=== PATIENT | male | born 1975 | race Caucasian/White ===

== ENCOUNTER 2016-12-11 02:21 | Emergency (ER) | payer OTHER ==
[~2016-12-11] VITALS: Ht 180.3 cm; Wt 113.8 kg
[2016-12-11 03:26] VITALS: BP 145/86
== END 2016-12-11 03:26 | disposition home or self-care (01) ==
LOC: ED 02:21
DX: S92.415A Nondisplaced fracture of proximal phalanx of left great toe, initial encounter for closed fracture (principal); I10 Essential (primary) hypertension; Z86.14 Personal history of Methicillin resistant Staphylococcus aureus infection; W22.8XXA Striking against or struck by other objects, initial encounter; Y93.89 Activity, other specified; Y99.8 Other external cause status; Y92.89 Other specified places as the place of occurrence of the external cause
CPT/HCPCS: J1885; Q0092

== ENCOUNTER 2017-06-05 05:09 | Emergency (ER) | payer OTHER ==
[2017-06-05 05:42] VITALS: BP 139/89
== END 2017-06-05 05:42 | disposition home or self-care (01) ==
LOC: ED 05:09
DX: B86 Scabies (principal); K21.9 Gastro-esophageal reflux disease without esophagitis

== ENCOUNTER 2017-07-17 19:33 | Emergency (ER) | payer OTHER ==
[~2017-07-17] VITALS: Ht 180.3 cm; Wt 113.4 kg
[2017-07-17 19:35] VITALS: Ht 180.3 cm; Wt 113.4 kg
[2017-07-17 22:22] VITALS: BP 144/75
== END 2017-07-17 22:22 | disposition home or self-care (01) ==
LOC: ED 19:33
DX: S92.414A Nondisplaced fracture of proximal phalanx of right great toe, initial encounter for closed fracture (principal); S01.01XA Laceration without foreign body of scalp, initial encounter; I10 Essential (primary) hypertension; Y08.89XA Assault by other specified means, initial encounter; Y93.89 Activity, other specified; Y92.89 Other specified places as the place of occurrence of the external cause; Y99.8 Other external cause status
CPT/HCPCS: J2001; Q0092

== ENCOUNTER 2017-07-19 01:14 | Emergency (ER) | payer OTHER ==
[~2017-07-19] VITALS: Ht 188 cm; Wt 121.6 kg
[2017-07-19 01:19] VITALS: Ht 188 cm; Wt 121.6 kg
[2017-07-19 04:08] VITALS: BP 144/86
== END 2017-07-19 02:03 | disposition home or self-care (01) ==
LOC: ED 01:14
DX: S01.01XD Laceration without foreign body of scalp, subsequent encounter (principal); X58.XXXD Exposure to other specified factors, subsequent encounter

== ENCOUNTER 2017-07-27 23:52 | Emergency (ER) | payer OTHER ==
[~2017-07-27] VITALS: Ht 182.9 cm; Wt 111.1 kg
[2017-07-28] VITALS: BP 158/94; Ht 182.9 cm; Wt 111.1 kg
== END 2017-07-28 02:03 | disposition left against medical advice (07) ==
LOC: ED 23:52
DX: Z53.21 Procedure and treatment not carried out due to patient leaving prior to being seen by health care provider (principal)

== ENCOUNTER 2017-07-29 02:28 | Emergency (ER) | payer OTHER ==
[~2017-07-29] VITALS: Ht 180.3 cm; Wt 110.8 kg
[2017-07-29 02:35] VITALS: Ht 180.3 cm; Wt 110.8 kg
[2017-07-29 03:02] VITALS: BP 161/90
== END 2017-07-29 03:02 | disposition home or self-care (01) ==
LOC: ED 02:28
DX: S01.01XD Laceration without foreign body of scalp, subsequent encounter (principal); X58.XXXD Exposure to other specified factors, subsequent encounter

== ENCOUNTER 2018-11-06 09:57 | Emergency (ER) | payer OTHER ==
[~2018-11-06] VITALS: Ht 180.3 cm; Wt 119.1 kg
[2018-11-06 10:01] VITALS: Ht 180.3 cm; Wt 119.1 kg
[2018-11-06 10:58] LABS: BASOPHIL % 0.5 % (0-2); PLATELET COUNT 195 x10^3mcL (130-400); RED CELL DISTRIBUTION WIDTH 13.1 % (11.5-14.5)
[2018-11-06 11:08] LABS: ALBUMIN 3.7 g/dL (3.4-5.0); ALKALINE PHOSPHATASE 53 U/L (46-116); ALT/SGPT 18 U/L (16-63); AST/SGOT 10 U/L (15-37); CALCIUM 8.5 mg/dL (8.5-10.1); CARBON DIOXIDE 28.9 mmol/L (21-32); CHLORIDE SERUM 107 mmol/L (98-107); CHOLESTEROL 156 mg/dL (<200); CREATININE SERUM 0.8 mg/dL (0.7-1.3); GFR1 > 60 mL/min; GLUCOSE SERUM 97 mg/dL (74-106); HDL CHOLESTEROL 43 mg/dL (40-60); PHOSPHOROUS 3.3 mg/dL (2.5-4.9); POTASSIUM SERUM 3.7 mmol/L (3.5-5.1); SODIUM SERUM 143 mmol/L (136-145); TOTAL PROTEIN, SERUM 6.8 g/dL (6.4-8.2); URIC ACID 3.8 mg/dL (3.5-7.2)
[2018-11-06 12:02] VITALS: BP 107/67
== END 2018-11-06 12:02 | disposition home or self-care (01) ==
LOC: ED 09:57
PROVIDERS: Emergency Medicine
DX: H81.10 Benign paroxysmal vertigo, unspecified ear (principal)
CPT/HCPCS: 36415; 82962; J8597